=== PATIENT | male | born 1985 | race Caucasian/White ===

== ENCOUNTER 2020-04-14 15:29 | Emergency (ER) | payer SELFPAY ==
[~2020-04-14] VITALS: Ht 167.6 cm; Wt 86.0 kg
[2020-04-14] MEDS ORDERED: NAPROXEN375 MG PO (16:34)
[2020-04-14] MEDS ORDERED: PENICILLN VK500 MG PO (16:34)
[2020-04-14] MEDS ORDERED: NO HOME MEDS (17:07)
[2020-04-14 17:10] VITALS: BP 159/87
== END 2020-04-14 17:10 | disposition home or self-care (01) | DRG 159 ==
LOC: ED 15:29
DX: K04.7 Periapical abscess without sinus (principal); K02.9 Dental caries, unspecified; F17.200 Nicotine dependence, unspecified, uncomplicated